=== PATIENT | female | born 1945 | race Caucasian/White ===

== ENCOUNTER 2020-03-02 12:08 | Day surgery (SDC) | payer MEDICARE, OTHER ==
[2020-02-27 09:43] VITALS: BMI 35.2
[2020-03-02] MEDS ORDERED: LIDOCAINE HCL 2% (20ML MULTI-DOSE VIAL) ONE (14:14)
[2020-03-02] MEDS ORDERED: MIDAZOLAM HCL 2 MG/2 ML SINGLE DOSE VIAL ONE (14:21)
[2020-03-02] MEDS ORDERED: ceFAZolin 2 GRAM PREMIX BAG IVPB ONE (14:40)
[2020-03-02] MEDS ORDERED: BUPIVACAINE HCL/PF 0.5% (5MG/ML) 10 ML VIAL IJ ONE (15:00)
[2020-03-02] MEDS ORDERED: LIDOCAINE HCL 2% (50ML VIAL) INF ONE (15:00)
[2020-03-02 16:20] VITALS: PULSE 71; TEMP 97.8
[2020-03-02 16:58] VITALS: BP 140/70
== END 2020-03-02 17:20 | disposition home or self-care (01) ==
LOC: FASU 12:08
PROVIDERS: ATTEND Podiatrist Foot Surgery
PROC: 0QSN04Z Reposition Right Metatarsal with Internal Fixation Device, Open Approach (ICD-10-PCS; principal; 2020-03-02 14:59)
PROC: 0QSQ04Z Reposition Right Toe Phalanx with Internal Fixation Device, Open Approach (ICD-10-PCS; 2020-03-02 14:59)
DX: M20.11 Hallux valgus (acquired), right foot (principal); M21.611 Bunion of right foot
CPT/HCPCS: 73630-TC-RT-FY; 82962